=== PATIENT | female | born 1985 | race Caucasian/White ===

== ENCOUNTER 2019-06-23 10:35 | Day surgery (SDC) | payer BC, MEDICAID ==
[2019-06-23] MEDS ORDERED: PROPOFOL INJ 200 MG/20 ML VIAL IV ONE (12:04)
[2019-06-23] MEDS ORDERED: MIDAZOLAM 2 MG/2 ML INJ ONE (12:04)
[2019-06-23] MEDS ORDERED: ONDANSETRON HCL INJ/PF 4 MG/2 ML SDV ONE (12:04)
[2019-06-23] MEDS ORDERED: FENTANYL CITRATE INJ/PF 100 MCG/2 ML AMPUL ONE (12:04)
[2019-06-23] MEDS ORDERED: DEXAMETHASONE SOD PHOS INJ 10 MG/1 ML VIAL ONE (12:04)
[2019-06-23] MEDS ORDERED: SUCCINYLCHOLINE CHLORIDE INJ 200 MG/10 ML VIAL ONE (12:05)
[2019-06-23] MEDS ORDERED: LIDOCAINE 2%/EPINEPHRINE INJ 1.7 ML CARTRIDGE ONE (12:08)
[2019-06-23] MEDS ORDERED: OXYMETAZOLINE HCL 0.05% NASAL SPRAY 15 ML BOTTLE ONE (12:08)
[2019-06-23] MEDS ORDERED: COCAINE HCL 4% TOPICAL SOLN 4 ML ONE (12:08)
[2019-06-23] MEDS ORDERED: HYDROCODONE/ACETAMINOPHEN 5-325 MG TABLET ONE (13:22)
--- NOTE | 2019-06-23 13:28 | Operative Report ---
Operative Report-[facility] Operative Report: Date: 23 June 2019 History: Patient with a history of right eustachian tube dysfunction. Presents today for a myringotomy with insertion right PE tube and balloon dilation right eustachian tube. Informed consent was obtained from the patient. Preoperative Diagnosis: 1. Eustachian tube dysfunction, right Postoperative diagnosis: Same as above Procedure: 1. Eustachian tube balloon dilation/reconstruction nasopharynx [CPT = 51190], right 2. Myringotomy with insertion tympanostomy tube, right 3. Rigid nasal endoscopy, right Surgeon: Francois Zamorano MD, FACS, [facility] Anesthesia: GETA Description of procedure: After receiving informed consent from the patient, the patient was transported to the operating room and placed supine on the operating room table. After successful induction and intubation by anesthesia cottonoids saturated with 4% cocaine were placed into each nasal cavity for approximately 5 minutes. They were then removed. Nasal septum and inferior turbinate were injected with 2% Xylocaine with 100,000 epinephrine. The cottonoids were placed back into the nasal cavity. The operating microscope was brought into the field and under binocular microscopy a properly sized ear speculum was placed into the right ear. The tympanic membrane was visualized and a radial incision was made in the anterior inferior quadrant. Middle ear space was dry. A Paparella PE tube was then placed into this incision and otic drops placed into the external auditory canal. Attention was then directed to the eustachian tube balloon dilation portion of the procedure. The cottonoids were removed from the nasal cavity. A rigid 30 degree nasal endoscope along with the AREA eustachian tube balloon dilation system was inserted in the right nasal cavity. The torus tubarius was visualized. Under endoscopic guidance the balloon was inserted into the right eustachian tube lumen. The balloon was then insufflated to 12 atmospheric pressure for 2 minutes. The balloon was then let down and removed from the eustachian tube lumen. The endoscope and balloon system was then rem lady from the nasal cavity. The patient tolerated the procedure well without any complications. Patient was then given back to anesthesia who successfully extubated the patient without any complications. Estimated blood loss: Minimal Fluids: 500 mL The patient was transferred to the postanesthesia care unit in stable condition with spontaneous respirations.
== END 2019-06-23 14:20 | disposition home or self-care (01) ==
LOC: SC 10:35
PROVIDERS: ATTEND Otolaryngology
DX: H69.81 Other specified disorders of Eustachian tube, right ear (principal); J30.2 Other seasonal allergic rhinitis; Z88.5 Allergy status to narcotic agent
CPT/HCPCS: 42950; 69436; 31231; J2250; J3490 ×3; J3010; J0330; J2405; J2704; J1100